=== PATIENT | male | born 2000 | race Two or more races ===

== ENCOUNTER 2022-12-06 21:07 | Emergency (ER) | payer OTHER, SELFPAY ==
--- NOTE | ~2022-12-06 | XR_ITS ---
EXAMINATION: XR WRIST, LEFT CLINICAL INFORMATION: Pain. COMPARISON: None available. TECHNIQUE: Four views of the left wrist. FINDINGS: No acute fractures or malalignment. 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 No erosions. No chondrocalcinosis. No significant soft tissue abnormality. XR/XR wrist LT min 3V IMPRESSION: 1. No acute fractures or malalignment. 2. 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
[2022-12-06 21:09] VITALS: BP 142/76; PULSE 94; RESP 18; TEMP 36.6; O2SAT 97; BMI 26.2
[2022-12-07] VITALS: BP 135/72; PULSE 71; RESP 18; TEMP 36.1; O2SAT 96
--- NOTE | 2022-12-07 00:20 | ED.EXTPRO ---
HPI - Extremity Problem General Chief complaint: Extremity Injury, Upper Stated complaint: L broken wrist? Time Seen by Provider: 12/06/22 23:47 Source: patient, RN notes reviewed and old records reviewed Mode of arrival: ambulatory Limitations: no limitations History of Present Illness HPI Narrative: 22-year-old male presents for evaluation of left wrist pain. patient reports that he was at work at [employer] he tried taking a large toe off of a shelved and it fell while trying to stop it from falling he twisted his left wrist he did not fall he has pain radiating to his left hand his pain is 8/10 and worse with movement Related Data Allergies Allergy/AdvReac Type Severity Reaction Status Date / Time No Known Allergies Allergy Verified 12/06/22 21:13 Review of Systems Constitutional: Constitutional: Reports as per HPI, Denies chills, Denies fatigue and Denies fever(s) Musculoskeletal: Musculoskeletal: Reports arthralgias and Reports joint swelling Neurologic: Denies focal weakness Endocrine: Endocrine: Denies fatigue PMFSH Social History Social History Alcohol intake: never Smoked in Last 30 Days: No Use of substances other than those prescribed or required for medical reasons: No Advance Directives: No Advance Directives Information Provided: No Physical Exam Vital Signs: Vital Signs: Last Vital Signs Temp 97.8 F 12/06/22 21:09 Pulse 94 12/06/22 21:09 Resp 18 12/06/22 21:09 BP 142/76 H 12/06/22 21:09 Pulse Ox 97 12/06/22 21:09 O2 Del Method Room Air 12/06/22 21:09 BMI result Body Mass Index 26.2 Const: General: healthy appearing, comfortable, no acute distress, alert and awake Nutritional Appearance: well nourished Orientation/consciousness: patient oriented x3 Skin: General skin exam: no rashes or lesions noted and elasticity normal Neuro: General: patient oriented x3 Cranial nerves: Yes Bilaterally intact EOM present Cognition (Neuro): normal cognition Extrem: Other: patient has mild edema to the dorsal surface left wrist mostly on the radial side. There are no open wounds or lesions. Patient had a gold ring on the left 4th finger. I was able to remove this by wrapping suture string on the distal end and sliding the ring over it. I removed the needle prior to doing this and then removed the sutures string from the finger. Medical Decision Making Medical Decision Making MDM Narrative: patient had a minor injury to the left hand. X-rays negative for fracture. I was able to remove his gold ring without cutting it off his finger. distal sensation and capillary refill intact Differential Diagnosis hand sprain Wrist sprain Wrist fracture Wrist dislocation Independent Interpretation I performed an independent interpretation of an: Plain X-Ray ( agree with radiology interpretation, no acute fracture) Radiology Impression Discussion of test interpretation with radiology: I have reviewed the radiologist's reading. Discharge Plan Discharge Clinical Impression: Left wrist sprain Patient Disposition: Home, Self-Care Instructions: Wrist Sprain (ED) Additional Instructions: your x-ray was negative for fracture. Use ibuprofen/ Tylenol for your pain ice the area every 4 hours for 15 minutes elevate your arm above your heart while resting follow-up with your primary doctor Stand Alone Forms: Work/School Release
== END 2022-12-07 00:49 | disposition home or self-care (01) ==
PROVIDERS: Emergency Provider Student in an Organized Health Care Education/Training Program
DX: S63.502A Unspecified sprain of left wrist, initial encounter (principal); X58.XXXA Exposure to other specified factors, initial encounter; Y93.9 Activity, unspecified; Y92.9 Unspecified place or not applicable; Y99.9 Unspecified external cause status
CPT/HCPCS: 73110; 99283; 99284